=== PATIENT | male | born 1975 | race Caucasian/White ===

== ENCOUNTER → 2017-10-23 | Outpatient (CLI) | payer OTHER ==
--- NOTE | 2017-10-23 16:42 | RAD ---
CERVICAL SPINE 2-3V (AP, lateral, open-mouth odontoid Clinical Indication: NECK PAIN Comparison: None. Findings: The cervical spine is visualized to the level of the cervicothoracic junction. Straightening of the normal cervical lordosis. No listhesis. The vertebral body heights are maintained. No evidence of acute fracture. Mild multilevel degenerative changes of the visualized spine. No significant soft tissue abnormality. IMPRESSION: 1. No acute fracture or malalignment. 2. Mild multilevel degenerative changes of the visualized spine.
--- NOTE | 2017-10-23 16:43 | RAD ---
THORACIC SPINE 3V (AP, lateral, swimmer's) Clinical Indication: BACK PAIN Comparison: None. Findings: The normal thoracic kyphosis is maintained. No listhesis. Vertebral body heights are maintained. Mild multilevel degenerative changes of the visualized spine. No significant soft tissue abnormality. IMPRESSION: 1. No acute fracture or malalignment. 2. Mild multilevel degenerative changes of the visualized spine.
== END | disposition home or self-care (01) ==
LOC: DXRAD 15:14
PROVIDERS: ATTEND Nurse Practitioner Family
DX: M47.893 Other spondylosis, cervicothoracic region (principal)
CPT/HCPCS: 72040; 72072